=== PATIENT | male | born 1975 | race African-American/Black ===

== ENCOUNTER 2018-09-21 04:20 | Emergency (ER) | payer MEDICAID, OTHER ==
[~2018-09-21] VITALS: Ht 177.8 cm; Wt 125.6 kg
[2018-09-21 04:23] VITALS: Ht 177.8 cm; Wt 125.6 kg
[2018-09-21] MEDS ORDERED: ONDANSETRON 4 MG INJ IV STA (05:17)
[2018-09-21] MEDS ORDERED: SOD CHLORIDE 0.9% 500 ML IV STA (05:17)
[2018-09-21] MEDS ORDERED: morphine 4 MG/ML VIAL IV STA (05:17)
[2018-09-21] MEDS ORDERED: HYDROmorphONE 2 MG/ML SYG IV STA (06:11)
[2018-09-21] MEDS ORDERED: ONDA4TAB14 PO (06:59)
[2018-09-21] MEDS ORDERED: IBUP-1542 PO (06:59)
[2018-09-21] MEDS ORDERED: ALBU8.5H8 INH (07:10)
[2018-09-21] MEDS ORDERED: AZIT250T PO (07:10)
--- NOTE | 2018-09-21 07:14 | ERD ---
ER Documentation Chief Complaint Chief Complaint R sided torso hurts everytime he breathes x 1day;denies trauma HPI Patient is a 43-year-old male with no medical problems who presents with right- sided chest pain and abdominal pain. The patient said that it started yesterday. Is been constant but it hurts worse with breathing. He feels like it might be muscle contractions. He denies trauma. He tried Pepto-Bismol for his pain. He did have a long car ride from [place] to [place] recently. Upon review of old medical records this is the patient's first visit to the emergency department. His primary doctor is in [place]. ROS All systems reviewed and are negative except as per history of present illness. Medications Home Meds Active Scripts Albuterol Sulfate* (Proair HFA*) 8.5 Gm Hfa.aer.ad, 2 PUFF INH Q4H PRN for WHEEZING AND SOB, #1 INHALER Prov:REGAN GAN MD 09/21/18 Azithromycin* (Zithromax*) 250 Mg Tablet, 250 MG PO DAILY for 4 Days, TAB Prov:REGAN GAN MD 09/21/18 Ondansetron (Ondansetron Odt) 4 Mg Tab.rapdis, 4 MG PO Q6H PRN for NAUSEA AND/OR VOMITING, #10 TAB Prov:REGAN GAN MD 09/21/18 Ibuprofen* (Motrin*) 600 Mg Tab, 600 MG PO Q6H PRN for PAIN AND OR ELEVATED TEMP, #30 TAB Prov:REGAN GAN MD 09/21/18 Allergies Allergies: Coded Allergies: No Known Allergy (Unverified , 09/21/18) PMhx/Soc Medical and Surgical Hx: pt denies Medical Hx History of Surgery: Yes (RIGHT WRIST SX) Anesthesia Reaction: No Hx Neurological Disorder: No Hx Respiratory Disorders: No Hx Cardiac Disorders: No Hx Psychiatric Problems: No Hx Miscellaneous Medical Probl: No Hx Alcohol Use: Yes (DAILY) Hx Substance Use: No Hx Tobacco Use: Yes Smoking Status: Current every day smoker FmHx Family History: diabetes Physical Exam Vitals Vital Signs Date Temp Pulse Resp B/P (MAP) Pulse Ox O2 O2 Flow FiO2 Time Delivery Rate 09/21/18 82 22 136/80 100 Room Air 05:08 (98) 09/21/18 98.8 80 20 144/87 100 04:23 (106) Physical Exam Const: No acute distress Head: Atraumatic Eyes: Normal Conjunctiva ENT: Normal External Ears, Nose and Mouth. Neck: Full range of motion. No meningismus. Resp: Clear to auscultation bilaterally Cardio: Regular rate and rhythm, no murmurs Abd: Soft, non tender, non distended. Normal bowel sounds Skin: No petechiae or rashes Back: No midline or flank tenderness Ext: No cyanosis, or edema Neur: Awake and alert Psych: Normal Mood and Affect Result Diagram: 09/21/1851909/21/18519 Results 24 hrs Laboratory Tests Test 09/21/18 05:20 09/21/18 05:31 White Blood Count 7.2 10^3/ul Red Blood Count 5.31 10^6/ul Hemoglobin 14.5 g/dl Hematocrit 44.6 % Mean Corpuscular Volume 84.0 fl Mean Corpuscular Hemoglobin 27.3 pg Mean Corpuscular Hemoglobin Concent 32.5 g/dl Red Cell Distribution Width 14.3 % Platelet Count 221 10^3/UL Mean Platelet Volume 12.0 fl Immature Granulocytes % 0.100 % Neutrophils % 60.9 % Lymphocytes % 27.0 % Monocytes % 11.3 % Eosinophils % 0.6 % Basophils % 0.1 % Nucleated Red Blood Cells % 0.0 /100WBC Immature Granulocytes # 0.010 10^3/ul Neutrophils # 4.4 10^3/ul Lymphocytes # 1.9 10^3/ul Monocytes # 0.8 10^3/ul Eosinophils # 0.0 10^3/ul Basophils # 0.0 10^3/ul Nucleated Red Blood Cells # 0.0 10^3/ul Sodium Level 141 mmol/L Potassium Level 4.6 mmol/L Chloride Level 103 mmol/L Carbon Dioxide Level 31 mmol/L Anion Gap 7 Blood Urea Nitrogen 10 mg/dl Creatinine 0.87 mg/dl Est Glomerular Filtrat Rate mL/min > 60 mL/min Glucose Level 112 mg/dl Calcium Level 10.0 mg/dl Total Bilirubin 0.7 mg/dl Direct Bilirubin 0.00 mg/dl Indirect Bilirubin 0.7 mg/dl Aspartate Amino Transf (AST/SGOT) 34 IU/L Alanine Aminotransferase (ALT/SGPT) 64 IU/L Alkaline Phosphatase 59 IU/L Total Protein 8.6 g/dl Albumin 4.5 g/dl Globulin 4.10 g/dl Albumin/Globulin Ratio 1.09 Lipase 29 U/L Urine Color STRAW Urine Clarity CLEAR Urine pH 6.0 Urine Specific [place] 1.010 Urine Ketones NEGATIVE mg/dL Urine Nitrite NEGATIVE mg/dL Urine Bilirubin NEGATIVE mg/dL Urine Urobilinogen NEGATIVE mg/dL Urine Leukocyte Esterase NEGATIVE Samuel/ul Urine Hemoglobin NEGATIVE mg/dL Urine Glucose NEGATIVE mg/dL Urine Total Protein NEGATIVE mg/dl Current Medications Medications Dose Sig/Gilbert Start Time Status Last (Trade) Ordered Route PRN Stop Time Admin Dose Reason Admin Sodium 500 ml @ Q1H STAT 09/21/18 DC 09/21/18 Chloride 500 mls/hr IV 05:17 05:23 09/21/18 06:16 Morphine 4 mg ONCE STAT 09/21/18 DC 09/21/18 Sulfate IV 05:17 05:23 (morphine) 09/21/18 05:18 Ondansetron 4 mg ONCE STAT 09/21/18 DC 09/21/18 HCl (Zofran IV 05:17 05:23 Inj) 09/21/18 05:18 1 mg ONCE STAT 09/21/18 DC 09/21/18 Hydromorphone IV 06:11 06:17 HCl 09/21/18 06:12 (Dilaudid) 500 mg ONCE ONCE 09/21/18 Azithromycin PO 07:30 (Zithromax) 09/21/18 07:31 Procedures/MDM Chest X-ray 1V Interpreted by me: Soft Tissue: No acute abnormalities Bones: No acute abnormalities Mediastinum/Cardiac Silhouette/Lungs: Right lower lobe infiltrate CT scan of the abdomen pelvis shows right lower lobe pneumonia per radiology. Patient is a 43-year-old male with no medical problems who presents with right- sided chest pain and abdominal pain. Laboratory studies were normal. Chest x- ray shows a right lower lobe infiltrate and CT scan shows right lower lobe pneumonia as well. I believe the patient is stable for outpatient management at this time and the patient will be given Zithromax for 5-day course. The first dose was given in the emergency department. Patient's PERC score is 0 and I doubt pulmonary embolism. I also doubt acute coronary syndrome, pneumonia, pneumothorax, pulmonary embolism, or aortic dissection. The patient will be discharged home to follow-up with a local clinics within 24 to 48 hours. The patient can return sooner for any worsening symptoms. PERC Rule for Pulmonary Embolism from [employer] on 09/21/2018 All calculations should be rechecked by clinician prior to use RESULT SUMMARY: 0 criteria No need for further workup, as <2% chance of PE. If no criteria are positive and clinicians pre-test probability is <15%, PERC Rule criteria are satisfied. INPUTS: Age ?50 > 0 = No HR ?100 > 0 = No Max? on room air <95% > 0 = No Unilateral leg swelling > 0 = No Hemoptysis > 0 = No Recent surgery or trauma > 0 = No Prior PE or DVT > 0 = No Hormone use > 0 = No Departure Diagnosis: Primary Impression: PNA (pneumonia) Pneumonia type: due to unspecified organism Laterality: right Lung location: lower lobe of lung Qualified Codes: J18.1 - Lobar pneumonia, unspecified organism Additional Impressions: Flank pain Chest pain Chest pain type: unspecified Qualified Codes: R07.9 - Chest pain, unspecified Condition: Fair Patient Instructions: Chest Pain, Uncertain Cause, Flank Pain, Uncertain Cause, Pneumonia (Adult) Referrals: [facility] YOU HAVE RECEIVED A MEDICAL SCREENING EXAM AND THE RESULTS INDICATE THAT YOU DO NOT HAVE A CONDITION THAT REQUIRES URGENT TREATMENT IN THE EMERGENCY DEPARTMENT. FURTHER EVALUATION AND TREATMENT OF YOUR CONDITION CAN WAIT UNTIL YOU ARE SEEN IN YOUR DOCTORS OFFICE WITHIN THE NEXT 1-2 DAYS. IT IS YOUR RESPONSIBILITY TO MAKE AN APPOINTMENT FOR FOLOW-UP CARE. IF YOU HAVE A PRIMARY DOCTOR --you should call your primary doctor and schedule an appointment IF YOU DO NOT HAVE A PRIMARY DOCTOR YOU CAN CALL OUR PHYSICIAN REFERRAL HOTLINE AT IF YOU CAN NOT AFFORD TO SEE A PHYSICIAN YOU CAN CHOSE FROM THE FOLLOWING [facility] [address]. [facility] [address] [facility] [address] [facility] [address] [facility]. [facility] [address] [facility]. [facility]. [address] Additional Instructions: Call your primary care doctor TOMORROW for an appointment during the next 1-2 days.See the doctor sooner or return here if your condition worsens before your appointment time. REGAN GAN MD Sep 21, 2018 07:14
[2018-09-21] MEDS ORDERED: AZITHROMYCIN 500 MG TAB PO ONE (07:30)
[2018-09-21] MEDS ORDERED: IBUPROFEN 800 MG TAB PO ONE (08:00)
[2018-09-21 08:30] VITALS: BP 136/92; PULSE 89; RESP 20
== END 2018-09-21 08:30 | disposition home or self-care (01) ==
LOC: E/R 04:20
DX: J18.1 Lobar pneumonia, unspecified organism (principal); F17.210 Nicotine dependence, cigarettes, uncomplicated
CPT/HCPCS: 36415; 71045; 74176; 80053; 81003; 83690; 85025; 96361; 96374; 96375; J1170; J2270; J2405; J7040; Z7502; Z7610